=== PATIENT | female | born 1985 | race American Indian/Alaskan Native ===

== ENCOUNTER 2023-05-29 16:51 | Outpatient (CLI) | payer BC ==
--- NOTE | 2023-05-30 09:47 | Ultrasound Report ---
PROCEDURE: Pelvic w/Transvaginal INDICATIONS: FREQUENT MENSES TECHNIQUE: Real-time scanning was performed of the pelvic organs, with image documentation. Additional endovagi nal scanning was necessary due to incomplete visualization of the adnexal and endometrial structures by transabdominal scanning. COMPARISON: None. FINDINGS: Uterus: Uterus is anteverted and normal in size at 5.6 x 4.4 x 4.4 cm. The myometrium is homogeneou s. The endometrium measures 4.6 mm in combined thickness. Ovaries: The right ovary measures 2.4 x 1.4 x 2.0 cm, with a calculated ovarian volume of 3.4 cc. T he left ovary measures 4.0 x 3.2 x 3.6 cm, with a calculated ovarian volume of 24.1 cc. The right ova ry has a normal appearance. The left ovary has a 3.1 x 2.2 x 2.8 cm cyst. Less than 12 follicles can be seen in each ovary. No adnexal masses are seen. Other: No pathologic free abdominal or pelvic fluid. IMPRESSION: 1. No acute abnormality of the pelvis. 2. Simple left ovarian cyst. Reviewed by: Slick Harris on 05/30/2023 8:46 AM HANS Approved by: Slick Harris on 05/30/2023 8:46 AM HANS Station ID: [id number]
== END 2023-05-29 16:52 | disposition home or self-care (01) ==
LOC: DI 16:51
PROVIDERS: ATTEND Physician Assistant
DX: N92.1 Excessive and frequent menstruation with irregular cycle (principal); N83.292 Other ovarian cyst, left side